=== PATIENT | male | born 1995 | race Caucasian/White ===

== ENCOUNTER 2019-03-04 02:44 | Emergency (ER) | payer SELFPAY ==
[~2019-03-04] VITALS: Ht 185.4 cm; Wt 95.5 kg
[2019-03-04 02:46] VITALS: TEMP 98.1
[2019-03-04 08:05] VITALS: BP 104/59; PULSE 77
== END 2019-03-04 08:05 | disposition home or self-care (01) ==
LOC: COL.ER 02:44 → EDBD 02:45 → COL.ER 08:05
DX: F10.129 Alcohol abuse with intoxication, unspecified (principal); Y90.8 Blood alcohol level of 240 mg/100 ml or more
CPT/HCPCS: J2405; J2765; J7030